=== PATIENT | female | born 1990 | race Caucasian/White ===

== ENCOUNTER 2018-01-17 08:49 | Emergency (ER) | payer MEDICAID ==
[~2018-01-17] VITALS: Ht 160 cm; Wt 102.0 kg
[~2018-01-17 08:49] MED LIST: IBUP-1986 PO; NO HOME MEDS; ONDA8TAB9 PO
[2018-01-17 08:50] VITALS: BP 137/89
[2018-01-17] MEDS ORDERED: ketorolac trometh inj. 60 MG/2 ML VIAL IM ONE (09:40)
[2018-01-17] MEDS ORDERED: CYCL-1 PO (09:41)
== END 2018-01-17 09:58 | disposition home or self-care (01) ==
LOC: ER 08:49
DX: M54.42 Lumbago with sciatica, left side (principal); F12.90 Cannabis use, unspecified, uncomplicated
CPT/HCPCS: 96372; 99284; J1885

== ENCOUNTER → 2018-10-05 | Emergency (ER) | payer MEDICAID ==
[~2018-10-05] VITALS: Ht 160 cm; Wt 88.6 kg
[~2018-10-05] MED LIST changes: +CYCL-1 PO; +HYDROcodone/acetaminophen 5mg/325mg tablet PO ONE
[2018-10-05 01:26] VITALS: BP 137/90
== END | disposition home or self-care (01) ==
LOC: ER 01:21
DX: S50.01XA Contusion of right elbow, initial encounter (principal); M25.511 Pain in right shoulder; F12.90 Cannabis use, unspecified, uncomplicated; W17.89XA Other fall from one level to another, initial encounter; Y93.89 Activity, other specified; Y92.89 Other specified places as the place of occurrence of the external cause; Y99.8 Other external cause status
CPT/HCPCS: 29105; 73090; 99284

== ENCOUNTER 2019-12-20 01:15 | Emergency (ER) | payer MEDICAID ==
[~2019-12-20] VITALS: Ht 160 cm; Wt 84.0 kg
[~2019-12-20 01:15] MED LIST changes: -HYDROcodone/acetaminophen 5mg/325mg tablet PO ONE
[2019-12-20] MEDS ORDERED: CEPH500C5 PO (01:29)
[2019-12-20] MEDS ORDERED: cephalexin 250mg capsule PO ONE (01:30)
[2019-12-20] MEDS ORDERED: IBUP-1984 PO (01:44)
[2019-12-20 01:49] VITALS: BP 149/97
== END 2019-12-20 01:52 | disposition home or self-care (01) ==
LOC: ER 01:16
DX: S80.812A Abrasion, left lower leg, initial encounter (principal); L03.116 Cellulitis of left lower limb; F32.9 Major depressive disorder, single episode, unspecified; Z79.899 Other long term (current) drug therapy; X58.XXXA Exposure to other specified factors, initial encounter; Y93.89 Activity, other specified; Y92.89 Other specified places as the place of occurrence of the external cause; Y99.8 Other external cause status
CPT/HCPCS: 73610; 99283

== ENCOUNTER 2021-08-09 00:52 | Emergency (ER) | payer MEDICAID ==
[~2021-08-09] VITALS: Ht 160 cm; Wt 90.1 kg
[2021-08-09 00:56] VITALS: BP 166/91
== END 2021-08-09 03:12 | disposition left against medical advice (07) ==
LOC: ER 00:53
DX: H57.10 Ocular pain, unspecified eye (principal); Z53.21 Procedure and treatment not carried out due to patient leaving prior to being seen by health care provider